=== PATIENT | male | born 1950 | race Caucasian/White ===

== ENCOUNTER → 2017-02-16 | Outpatient (CLI) | payer BC ==
[2015-04-15 11:26] VITALS: BP 110/64
[~2017-02-16] MED LIST: ALLO100T PO; AMLO10TA4 PO; ASPI325T4 PO; ATOR20TA58 PO; CELE200C PO; CLOP75TA27 PO; CYCL5TAB PO; DICL100G7 TP; HYDR-2666 PO; ISOS60TA2 PO; LISI-334 PO; METO100T2 PO; NITR0.4T SL; OMEG1CAP16 PO; OMEP40CA2 PO; Oxycodone Hcl/Acetaminophen PO; POTA10CA PO; TADA5TAB PO; TERA2CAP3 PO; TEST30SO TD; TRAM50TA PO; UBID100C26 PO; WARF5TAB PO; Warfarin Sodium MC
--- NOTE | 2017-02-16 21:32 | RAD ---
3 phase bone scan, 02/16/2017: History: Knee pain after knee replacement Imaging of of the knees was performed following an IV bolus injection of 5.5 mCi of technetium 99m Choletec. The dynamic flow study demonstrates mildly increased activity along the lateral margin of the left knee prosthesis. On the blood pool image there is mildly increased activity along the medial and lateral margins of the femoral component of the left knee prosthesis. On the delayed images there is persistent mildly increased activity along the margins of the femoral component of the left knee prosthesis.. There is also moderately increased activity at the level of the left patella. There is mildly increased activity along the tibial margins of the left knee prosthesis. There is mildly increased activity at the right knee on the delayed images, compatible with arthritis. IMPRESSION: Mildly increased activity along the femoral and tibial margins of the knee prosthesis as well as at the patella as described above. It is unclear as to whether this reflects ongoing healing, loosening or infection.
== END | disposition home or self-care (01) ==
LOC: NM 11:30
PROVIDERS: ATTEND Orthopaedic Surgery
DX: Z96.652 Presence of left artificial knee joint (principal)
CPT/HCPCS: 78315; 96374